=== PATIENT | female | born 1985 | race Caucasian/White ===

== ENCOUNTER 2023-08-25 09:38 | Outpatient (CLI) | payer OTHER, SELFPAY ==
[2023-08-25 10:24] LABS: Basophils Absolute Auto 0.1 K/mm3 (0.0-0.1); Basophils Percent Auto 1.3 % (0.2-1.2); Eosinophils Absolute Auto 0.1 K/mm3 (0-0.3); Eosinophils Percent Auto 2.9 % (0-4.4); Hematocrit 38.3 % (37.0-47.0); Hemoglobin 12.2 g/dL (12.0-15.0); Lymphocytes Absolute Auto 1.71 K/mm3 (0.9-3.2); Lymphocytes Percent Auto 37.9 % (18.3-44.2); Mean Corpuscular HGB Conc 31.9 g/dl (32-36); Mean Corpuscular Hemoglobin 30.2 pg (26-34); Mean Corpuscular Volume 94.8 fl (80-100); Mean Platelet Volume 10.7 fl (7.4-10.4); Monocytes Absolute Auto 0.5 K/mm3 (0.1-0.6); Monocytes Percent Auto 10.6 % (2.6-8.5); Neutrophils Absolute Auto 2.1 K/mm3 (1.3-6.7); Neutrophils Percent Auto 47.3 % (45.5-73.1); Platelet Count Result 252 k/mm3 (150-375); Red Blood Count 4.04 M/mm3 (4.2-5.4); Red Cell Distribution Width 11.8 % (11.5-14.5); White Blood Count 4.5 K/mm3 (4.5-10.0)
== END 2023-08-25 09:39 | disposition home or self-care (01) ==
LOC: ANHSURGERY 09:47
PROVIDERS: PCP Family Medicine Sports Medicine; Visit Provider Obstetrics & Gynecology
DX: R10.2 Pelvic and perineal pain (principal); Z01.818 Encounter for other preprocedural examination
CPT/HCPCS: 36415; 85025; 86850; 86900; 86901

== ENCOUNTER 2023-08-28 02:47 | Day surgery (SDC) | payer OTHER, SELFPAY ==
[2023-08-24 14:10] VITALS: BMI 23.5
--- NOTE | 2023-08-24 14:19 | PC.NURSE ---
Report to the Outpatient Waiting Room, entrance under the green pavilion located off [facility], at time 6:00 on date 08/28/23. Planned Procedure Time: 7:30. Time changes happen often and if your time is changed the preop area will call you the afternoon before. - You and your visitor will be asked to self-screen and do not enter if you have any COVID symptoms. - A mask is optional within the hospital at this time. Patients may have clear liquids (water, carbonated beverages, clear teas, apple juice) until 3 hours prior to surgery (4:30) with a maximum of 20 ounces. - No food from midnight until time of surgery Take the following medications with a SIP of water the morning of surgery: NONE DO NOT STOP ANY OF YOUR OTHER PRESCRIPTION MEDICATIONS PRIOR TO SURGERY ?EXCEPT THE FOLLOWING Medications to discontinue per physician: VITAMINS/SUPPLEMENTS Date to take last dose: 08/24/23 Please no make-up, nail fijian, hairspray, perfume, deodorant, or body powder the day of surgery. No jewelry (including any body piercings) or valuables the day of surgery, leave them at home. Please take a shower or bath the night before, or the morning of, surgery with an antibacterial soap. Wear comfortable, loose fitting clothing. - Jewelry must be removed prior to entering the operating room. Rings and piercings that are not removed may be cut off. - The hospital will not accept responsibility for valuables. - Please leave all valuables, including medications, at home the day of surgery. If you are going home after surgery, a licensed party bus driver must drive you home. - NO public transportation without another adult if you receive anesthesia. - We recommend that an adult stay with you for 24 hours following discharge. - We also recommend that you do not drive, make important decision, drink alcoholic beverages, or take any drugs that were not prescribed by your health care provider for at least 24 hours after your discharge time. Follow any additional instructions given to you from your surgeon. If you or anyone in your household have experienced Covid symptoms in the past week, please notify your surgeon or the nurse liaison at the phone number below for possible testing. Telephone instructions given to PT - TRAVIS RUTLEDGE and asked if any additional questions and then verbalized understanding. Patient advised to call surgeon office or pre surgery nurse liaison [phone] if any additional questions.
--- NOTE | 2023-08-25 16:10 | P.HP_ITS ---
H&P: HPI History of Present Illness Date/Time: 08/25/23 16:10 Chief Complaint: Has no bleeding/failed ablation/dyspareunia/pain Narrative: This is 28 year multiparous patient with failed ablation admitted for robotic hysterectomy bilateral salpingectomy secondary to failed ablation bleeding dyspareunia menorrhea dyspareunia pain. She understands this will make her permanently infertile. Risks and benefits were reviewed including not exclusive of , aspiration pneumonia, bleeding, transfusion, perforation injury to bowel, bladder, ureters, or other internal organs with need for laparotomy. She received the ACOG handout entitled hysterectomy as well as an of itchy handout. She had all questions answered. She asked to proceed [facility] Social History Social History Years smoked: 3 Smoking status: Former smoker Tobacco type: cigarettes Smoking end date: 10/19/12 Alcohol intake: current Alcohol use details: 2/MONTH Substance use: never Substance use type: does not use Living arrangements: with family Spiritual care concerns: No Meds Home Medications and Allergies Home Medications Medication Instructions Recorded Confirmed Type Saccharomyces boulardii 250 mg 250 mg PO DAILY 08/24/23 08/24/23 History capsule (Daily Probiotic (S. boulardii)) lysine 1,000 mg tablet 1,000 mg PO DAILY 08/24/23 08/24/23 History magnesium glycinate 100 mg tablet 100 mg PO DAILY 08/24/23 08/24/23 History multivitamin 1 tablet PO DAILY 08/24/23 08/24/23 History Allergies Allergy/AdvReac Type Severity Reaction Status Date / Time Sulfa (Sulfonamide AdvReac Abdominal Verified 08/24/23 14:08 Antibiotics) Pain Exam Const: General: cooperative, healthy appearing and comfortable Nutritional Appearance: average body habitus Orientation/consciousness: oriented to person, oriented to place and oriented to time HENMT: Head: normal to inspection Resp: Effort & Inspection: normal respiratory effort Cardio: Rate: regular rate Rhythm: regular rhythm Heart sounds: S1 normal heart sound present and S2 normal heart sound present GI: Inspection: normal to inspection : External Female Exam: normal external appearance Speculum Exam - Vagina: normal appearance of the vagina Speculum Exam - Cervix: normal appearance of the cervix Bimanual exam- vagina & uterus: enlarged and Uterine tenderness Bimanual Exam- Adnexa, other: normal adnexae Assessment and Plan Assessment and plan (1) Pelvic pain: Code(s): R10.2 - Pelvic and perineal pain Status: Acute (2) Dysmenorrhea: Code(s): N94.6 - Dysmenorrhea, unspecified Status: Acute (3) Dyspareunia: Status: Acute Plan Robotic total vaginal hysterectomy bilateral salpingectomy
[2023-08-28] VITALS (11 sets, daily range): BP systolic 91–131; BP diastolic 49–101; PULSE 60–89; RESP 12–20; TEMP 36.2–36.9; O2SAT 97–100
[2023-08-28] MEDS: LACTATED RINGERS 1,000 ML 30 ML IV CONT ×2 (06:30→08:48)
--- NOTE | 2023-08-28 06:40 | WPDHPUPDATE1 ---
History and Physical Update Update Date/Time: 08/28/23 06:40 History and Physical has been reviewed, including an updated exam of the patient. There are NO changes in the patient's condition. Risks, benefits, and alternatives have been discussed and questions answered. Patient agrees to proceed with procedure.
[2023-08-28] MEDS: KETOROLAC 15 MG/ML VIAL (*BKC) IV PUSH (06:45)
[2023-08-28] MEDS: ACETAMINOPHEN 500 MG TABLET 1000 MG PO (06:45)
--- NOTE | 2023-08-28 07:25 | P.PNAN_ITS ---
Anes - Initial Pre Proc Eval Procedure: Operation Date: 08/28/23 07:30 Proposed Procedures p Robotic Assisted Total Vaginal Hysterectomy, Bilateral Salpingectomy - Jose Bocanegra MD Date/Time: 08/28/23 07:25 Surgeon: Jose Bocanegra MD Pre Op Diagnosis: Failed Ablation Pelvic Pain Dyspareunia, Irg Bleed Patient Data Age: 37 Gender: F Height: 1.63 m Weight: 62.15 kg Allergies Allergy/AdvReac Type Severity Reaction Status Date / Time Sulfa (Sulfonamide AdvReac Abdominal Verified 08/24/23 14:08 Antibiotics) Pain Home Medications Medication Instructions Recorded Confirmed Type Saccharomyces boulardii 250 mg 250 mg PO DAILY 08/24/23 08/24/23 History capsule (Daily Probiotic (S. boulardii)) lysine 1,000 mg tablet 1,000 mg PO DAILY 08/24/23 08/24/23 History magnesium glycinate 100 mg tablet 100 mg PO DAILY 08/24/23 08/24/23 History multivitamin 1 tablet PO DAILY 08/24/23 08/24/23 History tramadol 50 mg tablet 50 mg PO Q4H PRN pain #20 tabs 08/28/23 Rx Patient hx anesthesia problems: none Family hx anesthesia problems: none Results Review: All pre-operative results and documents have been reviewed as part of the pre- operative evaluation. [facility] Social History Social History Years smoked: 3 Smoking status: Former smoker Tobacco type: cigarettes Smoking end date: 10/19/12 Alcohol intake: current Alcohol use details: 2/MONTH Substance use: never Substance use type: does not use Living arrangements: with family Spiritual care concerns: No Anes - Eval Final PreProcedure Day of Procedure 08/28/23 07:25 Patient weight: normal Heart: regular rate and rhythm Lungs: clear to auscultation Airway: Mallampati scale Neurological: alert and oriented Last oral intake: >/= 8 hours ASA classification: I Emergent: no Anesthetic plan: proceed Anesthesia type and monitoring: general ETT and standard monitoring Results Review: All pre-operative results and documents have been reviewed as part of the pre- operative evaluation. Informed Consent: The patient's anesthetic plan and its attendant risks and benefits were dis cussed with the patient/family/POA. Questions were solicited and answers provided to the satisfaction of the patient/family/POA.
[2023-08-28] MEDS: ceFAZolin 2 GM/D5W 50 ML 2 GM/50 ML BAG IVPB (07:29)
[2023-08-28] MEDS: SCOPOLAMINE 1.5 MG PATCH TRANSDERM (08:11)
--- NOTE | 2023-08-28 08:28 | P.OP_ITS ---
Procedure Note - Detailed Date of Procedure 08/28/23 Pre-op Diagnosis Failed Ablation Pelvic Pain Dyspareunia, Irg Bleed Post-op Diagnosis Same Procedure Performed Robotic total vaginal hysterectomy bilateral salpingectomy Surgeon Jose Bocanegra MD Anesthesia General Indications This is a 28 female failed ablation pain dyspareunia Findings Enlarged uterus. Normal-appearing ovaries tubes. Description of Procedure The patient was prepped draped in the normal sterile fashion placed in dorsal lithotomy position. Under excellent general trach anesthesia weighted speculum placed in posterior VV. Anterior of the cervix uterus sounded cm serial passes. Next the 16 catheter placed in the bladder was drained of clear urine. The gloves were changed and the weighted spin after the weighted speculum removed. A supraumbilical incision made the Veress needle passed in the abdomen. Abdomen filled with CO2 used gas [id number]. The 8 trocar advanced in the abdomen. Downside visualized no injury seen. Gas reattached. Patient taken 10 delivered and left and right lateral quadrant incisions made. 8mm trocars advanced under direct visualization. A right upper quadrant incision made the 8mm trocar adv anced under direct visualization assuring injury. The robot was docked. Attention was turned to the retirement plan counselor. The left round ligament grasped, burned, cut. The bladder was sharply dissected away by incising the peritoneum and retracting the bladder caudally away from the cervix uterus the opposite round. Which was clamped, burned, cut. Next the left fallopian tube was sharply dissected away using monopolar cautery and left attached to the uterine origin. This was repeated to the right fallopian tube. The left ovary was conserved by sharply clamping burning and cutting the utero-ovarian ligament and bringing this to the previously cut. The right conserving the right ovary, the utero- ovarian ligaments clamped, burned, cut brought the level previously cut ligament. Cardinal broad ligaments on the left were serially skeletonized clamping burning cutting until the uterine vessels could be seen on these were large tortuous and individually clamped, burned, cut. In similar fashion on the right, cardinal broad ligaments were skeletonized clamping burning cutting and hugging the cervix uterus until the large tortuous uterine vessels could be seen on the right these were individually clamped, burned, cut. Blanching the uterus was noted in a colpotomy incision was made. Cervix uterus and tubes were removed through the vagina. The vagina then closed with continuous running 0V lock from lateral edge to lateral edge back to the midline. Irrigation undertaken until clear blood loss estimated at25cc. The robot was undocked. The gas removed from the abdomen. The trocars removed and the incisions closed with 4 Monocryl glue. Patient went to recovery in satisfactory condition. All sponge, needle, instrument counts were correct. There were no immediate complications Estimated Blood Loss 25 Drains No Packing No Pathology Yes Complications No immediate complications Condition Stable Disposition PACU
--- NOTE | 2023-08-28 08:32 | PM.DS ---
DS: Admitting Diagnosis Discharge Date 08/29/2023 Admitting Diagnosis Dyspareunia/dysmenorrhea/pelvic pain DS: Discharge Diagnosis Discharge Diagnosis (1) Dyspareunia: Status: Acute (2) Dysmenorrhea: Code(s): N94.6 - Dysmenorrhea, unspecified Status: Acute (3) Pelvic pain: Code(s): R10.2 - Pelvic and perineal pain Status: Acute DS: Summary Hospital Course Reason for hospitalization: Patient was admitted on 08/28/2023 for robotic hysterectomy bilateral salpingectomy Hospital Course: Patient underwent successful robotic hysterectomy bilateral salpingectomy hospital course was remarkable. She remained afebrile. She was up, voiding without difficulty, ambulating, eating regular diet, and generally without complaints. Time Spent with Patient Time attestation: Total time spent providing and/or coordinating discharge services: Exam Const: General: cooperative, healthy appearing and comfortable Nutritional Appearance: average body habitus Orientation/consciousness: oriented to person, oriented to place and oriented to time HENMT: Head: normal to inspection Resp: Effort & Inspection: normal respiratory effort Cardio: Rate: regular rate Rhythm: regular rhythm Heart sounds: S1 normal heart sound present and S2 normal heart sound present GI: Inspection: normal to inspection and incision (Clean dry and intact) DS: Data Data Completed and Pending Pending studies at discharge: Pending at discharge 08/28/23 08:12 Surgical [PTH] Routine Discharge Plan Discharge Patient Disposition: Home, Self-Care Stand Alone Forms: General Discharge Instructions Follow-up/Referrals: Jose Farley MD [Physician] - Discharge Medications: New tramadol 50 mg tablet 50 mg PO Q4H PRN (Reason: pain) Qty: 20 0RF No Action multivitamin Tablet 1 tablet PO DAILY lysine 1,000 mg Tablet 1,000 mg PO DAILY Saccharomyces boulardii [Daily Probiotic (S. boulardii)] 250 mg Capsule 250 mg PO DAILY magnesium glycinate 100 mg Tablet 100 mg PO DAILY
[2023-08-28] MEDS: fentaNYL CITRATE INJ (*CRX) 100 MCG/2 ML VIAL 25 MCG IV PUSH ×4 (09:23→09:45)
--- NOTE | 2023-08-28 10:15 | PC.NURSE ---
PT arrived on floor via bed accompanied by spouse and taken to room 283. PT alert and awake and oriented to room 283 and surrounding area. PT introductions made and plan of care discussed per post op airline pilot flight instructor surgery, pain management, and daily care activities. PT and spouse both recipients of such instructions and no barriers to learning identified at this time. PT received such instructions per one to one discussion, and demonstrations. PT verbalized understanding of such care.
[2023-08-28] MEDS: KETOROLAC 30 MG/ML VIAL (*BKC) IV PUSH ×2 (10:58→19:01)
[2023-08-28] MEDS: DEXTROSE 5%/LACTATED RINGERS 1,000 ML 125 ML IV CONT (10:59)
[2023-08-28] MEDS: SIMETHICONE 80 MG TAB.CHEW PO ×3 (11:01→19:01)
[2023-08-28] MEDS: oxyCODONE HCL (*CRX) 5 MG TAB IR PO ×2 (14:29→21:44)
[2023-08-28] MEDS: DOCUSATE SODIUM 100 MG CAPSULE PO ×2 (14:32→21:41)
[2023-08-28] MEDS: ENOXAPARIN 40 MG/0.4 ML SYRINGE SUB-Q (21:41)
[2023-08-29 00:55] VITALS: BP 85/46; PULSE 75; RESP 14; TEMP 36.7; O2SAT 99
[2023-08-29] MEDS: oxyCODONE HCL (*CRX) 5 MG TAB IR PO ×2 (01:22→05:06)
[2023-08-29] MEDS: IBUPROFEN 600 MG TABLET PO ×2 (01:24→08:58)
[2023-08-29 04:45] VITALS: BP 92/49; PULSE 69; RESP 14; TEMP 36.6; O2SAT 99
[2023-08-29 05:29] LABS: Basophils Percent Auto 0.3 % (0.2-1.2); Eosinophils Absolute Auto 0.1 K/mm3 (0-0.3); Eosinophils Percent Auto 0.6 % (0-4.4); Hematocrit 32.8 % (37.0-47.0); Hemoglobin 10.8 g/dL (12.0-15.0); Immature Granulocyte Absolute 0.02 K/mm3 (0.00-0.031); Immature Granulocyte Percent A 0.2 % (0-0.5); Lymphocytes Absolute Auto 1.92 K/mm3 (0.9-3.2); Mean Corpuscular HGB Conc 32.9 g/dl (32-36); Mean Corpuscular Hemoglobin 30.5 pg (26-34); Mean Corpuscular Volume 92.7 fl (80-100); Monocytes Absolute Auto 0.8 K/mm3 (0.1-0.6); Monocytes Percent Auto 7.9 % (2.6-8.5); Neutrophils Absolute Auto 6.8 K/mm3 (1.3-6.7); Platelet Count Result 209 k/mm3 (150-375); Red Blood Count 3.54 M/mm3 (4.2-5.4); White Blood Count 9.6 K/mm3 (4.5-10.0)
--- NOTE | 2023-08-29 08:11 | PM.GYNPNOP ---
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 P: Home to f/u 2 weeks. (2) Dysmenorrhea: Code(s): N94.6 - Dysmenorrhea, unspecified Status: Acute (3) Pelvic pain: Code(s): R10.2 - Pelvic and perineal pain Status: Acute Postoperative Procedures: Procedures Operation Date: 08/28/23 07:30 Actual Procedure Side Surgeon p Robotic Assisted Total Vaginal Hysterectomy, Bilateral Salpingectomy Bilateral Jose Bocanegra MD Time Spent With Patient Time with patient: less than 15 minutes LAND SALES AGENT- PN:Subj Post-Op Subjective Date/time seen: 08/29/23 08:11 Interval history: Pain OK. Tolerating diet. Voiding. Would like to go home. Exam Narrative: AVSS I/O OK ABD soft, nontender. Incisions c/d/i. EXT nontender LAND SALES AGENT - PN: Obj Data Vital Signs Vital Signs: Vital Signs - 24 hr 08/28/23 08:48 08/28/23 09:00 08/28/23 09:15 Temperature 36.7 C Pulse Rate 89 77 60 Respiratory Rate 18 18 16 Blood Pressure 131/101 H 111/57 L 103/65 Pulse Oximetry 100 100 100 Oxygen Delivery Simple Face Mask Simple Face Mask Simple Face Mask Oxygen Flow Rate 6 6 6 08/28/23 09:35 08/28/23 09:50 08/28/23 10:05 Temperature 36.2 C L Pulse Rate 69 70 62 Respiratory Rate 16 12 14 Blood Pressure 98/62 L 94/57 L 94/64 L Pulse Oximetry 100 97 100 Oxygen Delivery Room Air Room Air Room Air Oxygen Flow Rate 08/28/23 10:25 08/28/23 10:30 08/28/23 14:30 Temperature 36.8 C 36.6 C Pulse Rate 60 60 66 Respiratory Rate 16 16 16 Blood Pressure 106/63 110/62 Pulse Oximetry 100 100 100 Oxygen Delivery Room Air Oxygen Flow Rate 08/28/23 18:56 08/29/23 00:55 08/29/23 04:45 Temperature 36.9 C 36.7 C 36.6 C Pulse Rate 78 75 69 Respiratory Rate 20 14 14 Blood Pressure 91/49 L 85/46 L 92/49 L Pulse Oximetry 98 99 99 Oxygen Delivery Oxygen Flow Rate Intake/Output Intake/Output: Intake & Output 08/26/23 08/27/23 08/28/23 08/29/23 23:59 23:59 23:59 23:59 Intake Total 2009 Output Total 930 Balance 1080 Meds/Results Medications: Active Medications Generic Name Dose Route Start Last Admin Trade Name Freq PRN Reason Stop Dose Admin Docusate Sodium 100 mg 08/28/23 10:09 08/28/23 21:41 Docusate Sodium 100 Mg Capsule PO 100 mg BID GIOVANI Administration Enoxaparin Sodium 40 mg 08/28/23 21:00 08/28/23 21:41 Enoxaparin 40 Mg/0.4 Ml Syringe SUB-Q 08/29/23 09:00 40 mg DAILY GIOVANI Administration Dextrose/Lactated Ringer's 1,000 mls @ 125 mls/hr 08/28/23 10:09 08/29/23 03:09 Dextrose 5%/Lactated Ringers IV CONT Not Given .Q8H GIOVANI Ibuprofen 600 mg 08/28/23 10:09 08/29/23 01:24 Ibuprofen 600 Mg Tablet PO 600 mg Q6H PRN Administration Cramping Ketorolac Tromethamine 30 mg 08/28/23 10:09 08/28/23 19:01 Ketorolac 30 Mg/Ml Vial (*Bkc) IV PUSH 09/02/23 10:08 30 mg Q6H PRN Administration Pain Rated 4-6 Naloxone HCl 0.1 mg 08/28/23 10:09 Naloxone Hcl 0.4 Mg/Ml Vial IV PUSH Q2M PRN Respiratory rate less than 10 Ondansetron HCl 4 mg 08/28/23 10:09 Ondansetron Inj 4 Mg/2 Ml Vial IV PUSH Q6H PRN Nausea And Vomiting Oxycodone HCl 5 mg 08/28/23 11:04 08/29/23 05:06 Oxycodone Hcl (*Crx) 5 Mg Tab Ir PO 5 mg Q4H PRN Administration Pain Rated 7-10 Simethicone 80 mg 08/28/23 10:09 08/28/23 19:01 Simethicone 80 Mg Tab.Chew PO 80 mg Q2H PRN Administration Gas Labs 08/29/23 04:58 Labs: Laboratory Results - last 24 hr 08/29/23 04:58 WBC 9.6 RBC 3.54 L Hgb 10.8 L Hct 32.8 L MCV 92.7 MCH 30.5 MCHC 32.9 RDW 12.0 Plt Count 209 MPV 11.0 H Immature Gran % (Auto) 0.2 Neut % (Auto) 71.0 Lymph % (Auto) 20.0 [place] % (Auto) 7.9 Eos % (Auto) 0.6 Baso % (Auto) 0.3 Lymph # (Auto) 1.92 [place] # (Auto) 0.8 H Eos # (Auto) 0.1 Baso # (A
--- NOTE | 2023-08-29 08:12 | PM.DS ---
DS: Admitting Diagnosis Discharge Date 08/29/23 Admitting Diagnosis Dyspareunia, dysmenorrhea, pelvic pain DS: Discharge Diagnosis Discharge Diagnosis (1) Dyspareunia: Status: Acute (2) Dysmenorrhea: Code(s): N94.6 - Dysmenorrhea, unspecified Status: Acute (3) Pelvic pain: Code(s): R10.2 - Pelvic and perineal pain Status: Acute DS: Summary Hospital Course Hospital Course: Admitted for scheduled surgery. Did well and home on POD1. Time Spent with Patient Time attestation: Total time spent providing and/or coordinating discharge services: DS: Data Data Completed and Pending Pending studies at discharge: Pending at discharge 08/28/23 08:12 Surgical [PTH] Routine Labs on day of discharge: Labs from last 24 hours 08/29/23 04:58 WBC 9.6 RBC 3.54 L Hgb 10.8 L Hct 32.8 L MCV 92.7 MCH 30.5 MCHC 32.9 RDW 12.0 Plt Count 209 MPV 11.0 H Immature Gran % (Auto) 0.2 Neut % (Auto) 71.0 Lymph % (Auto) 20.0 [place] % (Auto) 7.9 Eos % (Auto) 0.6 Baso % (Auto) 0.3 Lymph # (Auto) 1.92 [place] # (Auto) 0.8 H Eos # (Auto) 0.1 Baso # (Auto) 0.0 Abs Immat Gran (auto) 0.02 Absolute Neuts (auto) 6.8 H Absolute Nucleated RBC 0.0 Nucleated RBC % 0.0 Discharge Plan Discharge Patient Disposition: Home, Self-Care Discharge Instructions: Remove the Scopolamine patch that was placed behind your ear in 72 hours or less. Wash your hands after touching. Nothing in the vagina for 6 weeks. Call or return if temperature above 100.4? F, increased abdominal pain, increased vaginal bleeding or any new problems. Stand Alone Forms: General Discharge Instructions Follow-up/Referrals: Jose Farley MD [Physician] - 2 Weeks Discharge Medications: New tramadol 50 mg tablet 50 mg PO Q4H PRN (Reason: pain) Qty: 20 0RF Continued multivitamin Tablet 1 tablet PO DAILY lysine 1,000 mg Tablet 1,000 mg PO DAILY Saccharomyces boulardii [Daily Probiotic (S. boulardii)] 250 mg Capsule 250 mg PO DAILY magnesium glycinate 100 mg Tablet 100 mg PO DAILY
[2023-08-29 08:45] VITALS: BP 99/59; PULSE 69; RESP 18; TEMP 36.7; O2SAT 100
[2023-08-29] MEDS: DOCUSATE SODIUM 100 MG CAPSULE PO (10:34)
== END 2023-08-29 11:38 | disposition home or self-care (01) ==
LOC: ANHSURGERY 09:53 → ANHOB2 10:15
PROVIDERS: PCP Family Medicine Sports Medicine; Visit Provider Obstetrics & Gynecology
PROC: (CPT 58552; principal; 2023-08-28 07:30)
DX: N88.8 Other specified noninflammatory disorders of cervix uteri (principal); N83.8 Other noninflammatory disorders of ovary, fallopian tube and broad ligament; N85.8 Other specified noninflammatory disorders of uterus; Z87.891 Personal history of nicotine dependence; Z79.891 Long term (current) use of opiate analgesic
CPT/HCPCS: 58552; S2900; 36415; 85025; 86850; 86900; 86901; 88307; 99199; A9270; J0690; J1100; J1170; J1200; J1650; J1885; J2250; J2405; J2704; J3010; J7030; J7120; J7121

== ENCOUNTER 2024-03-10 15:00 | Emergency (ER) | payer OTHER, SELFPAY ==
--- NOTE | 2024-03-10 15:12 | ED.URI ---
HPI - URI/Sore Throat General Chief Complaint: Upper Respiratory Infection Stated Complaint: SORE THROAT Time Seen by Provider: 03/10/24 15:16 Source: patient, RN notes reviewed and old records reviewed Mode of arrival: ambulatory Limitations: no limitations History of Present Illness HPI Narrative: 38-year-old female presents to the [facility] with complaints of a sore throat that started yesterday. child tested positive for strep Related Data Home Medications Medication Instructions Recorded Confirmed Saccharomyces boulardii 250 mg 250 mg PO DAILY 08/24/23 03/10/24 capsule (Daily Probiotic (S. boulardii)) lysine 1,000 mg tablet 1,000 mg PO DAILY 08/24/23 03/10/24 magnesium glycinate 100 mg tablet 100 mg PO DAILY 08/24/23 03/10/24 multivitamin 1 tablet PO DAILY 08/24/23 03/10/24 Allergies Allergy/AdvReac Type Severity Reaction Status Date / Time Sulfa (Sulfonamide AdvReac Abdominal Verified 08/24/23 14:08 Antibiotics) Pain Review of Systems Review of Systems: All systems reviewed & are unremarkable except as noted in HPI and below Constitutional: Constitutional: Reports no additional constitutional complaints Eyes: Eyes: Reports no additional eye complaints ENT: Reports as per HPI and Reports sore throat Cardiovascular: Cardiovascular: Reports no additional cardiovascular complaints, Denies chest pain and Denies dyspnea Respiratory: Respiratory: Reports no additional respiratory complaints, Denies chest congestion, Denies cough and Denies dyspnea Gastrointestinal: Gastrointestinal: Reports no additional gastrointestinal complaints, Denies abdominal pain, Denies nausea and Denies vomiting Musculoskeletal: Musculoskeletal: Reports no additional musculoskeletal complaints Integumentary/Breasts: Skin/Breast: Reports system reviewed and no additional complaints, except as docu Neurologic: Reports system reviewed and no additional complaints, except as documented Psychiatric: Psychiatric: Reports no additional psychiatric complaints Allergic/Immunologic: Allergic/Immunologic: Reports no additional allergic/immunologic complaints [facility] Social History Social History Years smoked: 3 Smoking status: Former smoker Tobacco type: cigarettes Smoking end date: 10/19/12 Alcohol intake: current Alcohol use details: 2/MONTH Substance use: never Substance use type: does not use Living arrangements: with family Spiritual care concerns: No Comments At the time of my signature, I reviewed and agree with the nursing past medical, surgical, social, and family history. There is no relevant family history pertinent to the patient complaint. Exam Const: General: cooperative, healthy appearing, comfortable, no acute distress, well developed, alert and well nourished Nutritional Appearance: well nourished Orientation/consciousness: patient oriented x3 Limitations: no limitations HENMT: Head: normal to inspection Ears: hearing grossly normal bilaterally, external ears normal, TM's normal bilaterally, EAC's normal, mastoids normal and no periauricular adenopathy Face/Nose/Sinus: Normal external nose present, Normal nares present, Normal nasal mucous membranes and turbinates present, normal facial exam and face symmetric Face and sinus: normal facial exam and face symmetric Throat: posterior oropharynx normal, tonsils normal, uvula midline and no uvular edema Eyes: General: appearance normal, both eyes and all related structures Alignment and Position: alignment normal Periorbital: periorbital findings normal Pupils: Equal, round and reactive pupils present EOM: EOMs intact bilaterally Neck: Neck: normal visual inspection, full ROM, no lymphadenopathy and no meningeal signs Chest: Chest palpation & inspection: normal inspection of the chest Resp: Effort & Inspection: normal respiratory effort and able to speak in complete sentences Auscul
[2024-03-10 15:16] VITALS: BP 103/66; PULSE 99; RESP 16; TEMP 36.9; O2SAT 100
== END 2024-03-10 15:32 | disposition home or self-care (01) ==
PROVIDERS: Emergency Provider Nurse Practitioner
DX: J02.9 Acute pharyngitis, unspecified (principal); Z87.891 Personal history of nicotine dependence
CPT/HCPCS: 87081; 87880; 99213; G0463